=== PATIENT | female | born 1995 | race Two or more races ===

== ENCOUNTER 2022-02-02 16:11 | Emergency (ER) | payer OTHER ==
[~2022-02-02] VITALS: Ht 165.1 cm; Wt 52.2 kg
[2022-02-02] MEDS ORDERED: PANADOL (17:07)
== END 2022-02-02 20:19 | disposition home or self-care (01) ==
LOC: ER 16:11
DX: N93.9 Abnormal uterine and vaginal bleeding, unspecified (principal)